=== PATIENT | female | born 1975 ===

== ENCOUNTER 2018-12-05 07:33 | Emergency (ER) | payer OTHER ==
[2018-12-05 07:38] VITALS: BP 125/79
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
[2018-12-05] MEDS ORDERED: ULTRAM PO ONE (08:36)
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
== END 2018-12-05 11:09 | disposition home or self-care (01) ==
LOC: ED 07:33
DX: S16.1XXA Strain of muscle, fascia and tendon at neck level, initial encounter (principal); S29.011A Strain of muscle and tendon of front wall of thorax, initial encounter; S39.012A Strain of muscle, fascia and tendon of lower back, initial encounter; Z88.6 Allergy status to analgesic agent; V89.2XXA Person injured in unspecified motor-vehicle accident, traffic, initial encounter; Y93.89 Activity, other specified; Y92.488 Other paved roadways as the place of occurrence of the external cause; Y99.8 Other external cause status
CPT/HCPCS: 72040; 72100; 99283